=== PATIENT | female | born 1955 | race American Indian/Alaskan Native ===

== ENCOUNTER 2024-09-15 16:07 | Inpatient (IN) | payer OTHER ==
[~2024-09-15] VITALS: Ht 162.6 cm; Wt 72.9 kg
[2024-09-15 16:40] VITALS: PULSE 76; RESP 16; O2SAT 98
--- NOTE | 2024-09-15 16:48 | DVH ---
CHEST RADIOGRAPH Indication: syncope, head injury, possible stroke Technique: Single frontal view of the chest was obtained COMPARISON: None FINDINGS: Lines and Tubes: None Lungs: Clear Pleura: No effusion. No pneumothorax. Cardiomediastinal contours: Unremarkable Bones: Unremarkable IMPRESSION: 1. No acute disease.
--- NOTE | 2024-09-15 16:51 | DVH ---
EXAM: CT STROKE CTH INDICATION: syncope, head injury, possible stroke TECHNIQUE: CT of the head without intravenous contrast. Radiation Dose Information: CT Dose: CTDI volume is 51.46 mGy. Dose-length product is 911.39 mGy*cm The dose indicators for CT are the volume Computed Tomography (CT) Dose Index (CTDIvol) and the Dose Length Product (DLP), and are measured in units of mGy and mGy-cm, respectively. These indicators are not patient dose, but values generated from the CT scanner acquisition factors. The report includes radiation exposure data for exposures received during this examination. COMPARISON: None FINDINGS: There is no evidence of acute intracranial hemorrhage, extra-axial collection, mass effect, midline s hift, herniation or hydrocephalus. The ventricles, sulci and cisterns are age appropriate. The adams-white differentiation is intact. Patchy periventricular and subcortical white matter hypoattenuation is nonspecific but may be related to small vessel ischemic disease. The visualized paranasal sinuses and mastoid air cells are clear. The surrounding soft tissues and osseous structures are unremarkable. IMPRESSION: 1. No acute intracranial hemorrhage 2. No CT findings of territorial ischemia. CRITICAL FINDINGS Critical Result: Stroke Alert NEGATIVE Findings discussed with Dr Rosa , at 09/15/2024 04:44 PM, and acknowledged receipt and understanding of the findings. ..
--- NOTE | 2024-09-15 16:54 | ED.PDOC ---
HPI (NEURO) HPI Comments 69y F who presents to the ED for chief complaint of confusion. Pt had the following ED course. - pt states she had slip and fall in bedroom Thursday at 0200 after getting up to use restroom. Pt states gracie heard a thud and states gracie went to check on her and states all she remembers is she got up and told grandson she was okay and went to bed - pt states the following morning, she remembers waking to blood on the floor and states she saw remember seeing blood on the floor where she fell - pt states since fall she has been having L shoulder and L sided chest pain with associated dizziness and difficulty with gait and while ambulating - pt states she was at dermatology appt earlier this afternoon and states leathersmith noticed pt had gait instability, dizziness and slowed speech and referred pt to the ED for further evaluation - pt in the ED, is alert and oriented but is slow to answering questions and states she is having pain to the L side of her chest and neck area and states she feels unsteady on her feet - pt otherwise in the ED, denies any other symptoms at this time. PMH: asthma PSH: denies Allergies: cough medication Social history: denies tobacco use, endorses ETOH use, denies drug use HPI: Poor Historian. REVIEW OF SYSTEMS: CONSTITUTIONAL: Denies acute: fever, diaphoresis, chills, HEAD: Denies acute: headache, photophobia Eyes: Denies acute: Double vision, vision loss, eye pain, eye discharge. EARS: Denies acute: tinnitus, hearing loss, ear discharge, ear pain, THROAT: Denies acute: sore throat, swelling, difficulty swallowing , pain with swallowing, change in voice. NECK: Denies acute: neck pain, neck swelling, stiff neck. HEART: Denies acute : chest pain, palpitations, LUNGS: Denies acute: SOB, wheezing, cough, hemoptysis ABDOMEN: Denies acute: abdominal pain, Nausea, Vomiting, diarrhea, melena , hematemesis, hematochezia SKIN: Denies acute: rash, redness, lesions, itchiness. EXTREMITIES: Denies acute: calf pain, numbness, tingling, weakness, denies pain in extremity. Denies acute: Low back pain. Neuro: Denies acute: focal neurological deficit, motor or sensory focal neurological deficit, tremors, seizure like activity, confusion, change in mental status, loss of bowel or bladder function, cauda equina like symptoms. : Denies acute: dysuria, hematuria, flank pain, increase in urinary frequency. PSYCH: Denies acute: hallucination, suicidal ideation, homicidal ideation. FEMALE: Denies acute: abnormal vaginal bleeding, foul odor, unusual discharge. PHYSICAL EXAM: General: Mild acute distress, awake and alert. Head: normocephalic, atraumatic. Noted left forehead 1.5 cm laceration. No active bleeding, no swelling, this occurred at least three days ago. Neck: supple, trachea is midline, no swelling. Cervical spine: Palpation of the posterior midline of the cervical spine reveals no focal swelling, erythema, focal tenderness to palpation. Patient has normal range of motion. Throat: Normal phonation. Eyes:, no erythema, no purulent discharge, no proptosis, no icterus. Heart: regular rate, regular rhythm, no significant murmur appreciated. Lungs: no apparent respiratory distress, Able to speak in full sentences. No wheezing, no rhonchi, no crackles. No stridors Clear to auscultation bilaterally. Abdomen: non tender to palpation, non distended, soft, no guarding, no rebound, + bowel sounds. Palpation of the left chest wall has mild tenderness to palpation. Neuro: Awake, Alert, oriented to name, self, situation, follows commands GCS=15. Speech is normal. Skin: no petechia, no purpura, no cyanosis, non-pale, not jaundice. Lower extremities: --trace bilateral - Pitting edema no deformity, no focal swelling, no calf TTP. Makes eye contact. moves all four extremities. Face: no apparent facial droop. Ambulating in the ED independently. PERRLA, EOM-I CN 2-12 are grossly intact, No nystagmus. No nuchal rigidity, Kernig's sign, Brudzinski's sign, no meningeal signs. ED COURSE: Chief Complaint: Confusion Time Seen by MD: 17:00 Reviewed Notes: Nurses Notes, Medications, Allergies Information Source: Patient, Relative Mode of Arrival: Ambulatory Brought in by: grandson Was a procedure done? Was a procedure done?: No X-Ray, Labs, Meds, VS Vital Signs Date Time Temp Pulse Resp B/P (MAP) Pulse Ox O2 Delivery O2 Flow Rate FiO2 09/15/24 18:38 66 09/15/24 18:00 62 16 123/60 (81) 97 09/15/24 16:40 76 16 98 Room Air* 0 21 09/15/24 16:40 97.4 136 14 116/69 (85) 97 97.4 09/15/24 16:21 66 09/15/24 16:07 98.8 84 18 145/73 (97) 98 98.8 Lab Test 09/15/24 18:35 09/15/24 17:15 09/15/24 16:55 09/15/24 16:26 Range/Units Troponin I High Sensitivity 3 L < 3 L </=34 ng/L Urine Color Light-yellow Yellow Urine Clarity Clear Clear Urine pH 6.0 5.0-9.0 Urine Specific Jerome 1.008 1.001-1.035 Urine Protein Negative Negative Urine Ketones Negative Negative Urine Blood Negative Negative /uL Urine Nitrite 2+ H Negative Urine Bilirubin Negative Negative Urine Urobilinogen Normal Negative mg/dL Urine Leukocyte Esterase 2+ Negative /uL Urine RBC 1 0 - 4 /hpf Urine Microscopic WBC 5 0-5 /HPF Urine Squamous Epithelial Cells Few <5 /hpf Urine Bacteria Few H None Seen /hpf Urine Mucus Few None Seen Urine Glucose Normal Normal mg/dL White Blood Count 7.3 4.4-10.8 10^3/uL Red Blood Count 4.82 4.0-5.20 10^6/uL Hemoglobin 15.1 12.2-16.2 g/dL Hematocrit 44.6 36.0-46.0 % Mean Corpuscular Volume 92.5 80.0-100.0 fL Mean Corpuscular Hemoglobin 31.4 28.0-32.0 pg Mean Corpuscular Hemoglobin Concent 33.9 32.0-36.0 g/dL Red Cell Distribution Width 13.4 11.8-14.3 % Platelet Count 263 140-450 10^3/uL Mean Platelet Volume 7.6 6.9-10.8 fL Neutrophils (%) (Auto) 60.1 37.0-80.0 % Lymphocytes (%) (Auto) 29.3 10.0-50.0 % Monocytes (%) (Auto) 8.8 0.0-12.0 % Eosinophils (%) (Auto) 1.1 0.0-7.0 % Basophils (%) (Auto) 0.7 0.0-2.0 % Neutrophils # (Auto) 4.4 1.6-8.6 10 ^3/uL Lymphocytes # (Auto) 2.1 0.4-5.4 10 ^3/uL Monocytes # (Auto) 0.6 0-1.3 10 ^3/uL Eosinophils # (Auto) 0.1 0-0.8 10 ^3/uL Basophils # (Auto) 0.1 0-0.2 10 ^3/uL Nucleated Red Blood Cells 0.1 % Prothrombin Time 10.5 9.3-11.8 sec Prothrombin Time INR 0.99 0.9-1.15 Activated Partial Thromboplast Time 25.4 24.5-34.5 SEC Sodium Level 141 136-145 mmol/L Potassium Level 4.2 3.5-5.1 mmol/L Chloride Level 106 98-107 mmol/L Carbon Dioxide Level 26 20-31 mmol/L Anion Gap 9 5-15 Blood Urea Nitrogen 15 9-23 mg/dL Creatinine 0.81 0.550-1.02 mg/dL Glomerular Filtration Rate Calc 79 >90 mL/min BUN/Creatinine Ratio 18.5 10.0-20.0 Serum Glucose 93 74-106 mg/dL Calcium Level 10.1 8.7-10.4 mg/dL Magnesium Level 2.1 1.6-2.6 mg/dL Total Bilirubin 1.4 H 0.2-1.0 mg/dL Aspartate Amino Transferase (AST) 25 13-40 U/L Alanine Aminotransferase (ALT) 22 7-40 U/L Alkaline Phosphatase 81 46-116 U/L B-Type Natriuretic Peptide 27.05 0-100 pg/mL Total Protein 6.9 5.7-8.2 g/dL Albumin 4.7 3.2-4.8 g/dL POC Glucose 91 70-106 mg/dl [facility] [id number] [place] [id number] Ph: [phone] DIAGNOSTIC IMAGING Diagnostic Imaging Report : [id number] Signed PATIENT: COTY JASSO ACCT: [id number] UNIT: [id number] : 1955 LOC: ER ROOM / BED: / AGE / SEX: 69 / F ADM STATUS: REG ER SERVICE 24 ORDERING PHYSICIAN: KELSY READ DO PROCEDURE(s): CXR1 - CHEST XRAY 1 VIEW REASON: syncope, head injury, possible stroke ORDER NUMBER(s): [id number], ACCESSION NUMBER(s): [id number] CHEST RADIOGRAPH Indication: syncope, head injury, possible stroke Technique: Single frontal view of the chest was obtained COMPARISON: None FINDINGS: Lines and Tubes: None Lungs: Clear Pleura: No effusion. No pneumothorax. Cardiomediastinal contours: Unremarkable Bones: Unremarkable IMPRESSION: 1. No acute disease. ATED BY: CHARLOTTE LI MD DICTATED DATE/TIME: 09/15/241645 SIGNED BY: CHARLOTTE LI MD SIGNED DATE/TIME: 09/15/241645 CC: [place] [id number] Ph: [phone] DIAGNOSTIC IMAGING Diagnostic Imaging Report : [id number] Signed PATIENT: COTY JASSO ACCT: [id number] UNIT: [id number] : 1955 LOC: ER ROOM / BED: / AGE / SEX: 69 / F ADM STATUS: REG ER SERVICE 24 ORDERING PHYSICIAN: KELSY READ DO PROCEDURE(s): CTH - STROKE CTH REASON: syncope, head injury, possible stroke ORDER NUMBER(s): [id number], ACCESSION NUMBER(s): [id number] EXAM: CT STROKE CTH INDICATION: syncope, head injury, possible stroke TECHNIQUE: CT of the head without intravenous contrast. Radiation Dose Information: CT Dose: CTDI volume is 51.46 mGy. Dose-length product is 911.39 mGy*cm The dose indicators for CT are the volume Computed Tomography (CT) Dose Index (CTDIvol) and the Dose Length Product (DLP), and are measured in units of mGy and mGy-cm, respectively. These indicators are not patient dose, but values generated from the CT scanner acquisition factors. The report includes radiation exposure data for exposures received during this examination. COMPARISON: None FINDINGS: There is no evidence of acute intracranial hemorrhage, extra-axial collection, mass effect, midline shift, herniation or hydrocephalus. The ventricles, sulci and cisterns are age appropriate. The adams-white differentiation is intact. Patchy periventricular and subcortical white matter hypoattenuation is nonspecific but may be related to small vessel ischemic disease. The visualized paranasal sinuses and mastoid air cells are clear. The surrounding soft tissues and osseous structures are unremarkable. IMPRESSION: 1. No acute intracranial hemorrhage 2. No CT findings of territorial ischemia. CRITICAL FINDINGS Critical Result: Stroke Alert NEGATIVE Findings discussed with Dr Read , at 09/15/2024 04:44 PM, and acknowledged receipt and understanding of the findings. .. ATED BY: CHARLOTTE DURAN Jr., DO DICTATED DATE/TIME: 09/15/24 1649 SIGNED BY: CHARLOTTE DURAN Jr., SIGNED DATE/TIME: 09/15/24 1649 CC: Time of 1ST Reevaluation: 19:48 Reevaluation 1ST: Improved Patient Education/Counseling: Diagnosis, Treatment Family Education/Counseling: No Family Present Comments Patient presented with the above HPI.---syncope and collapse---workup was initiated. patient was found with the above mentioned diagnosis. the following medications were ordered: please refer to order lists of meds and tests obtained by myself Dr. Read. Patient ED course and VS have been stabilized. Patient has been reassessed in the ED and remained in a stable condition. Pertinent incidental findings were discussed with the patient and/or family. Patient/family voices understanding and is agreeable with plan. Patient has been observed in the ED adequate length of time to insure improvement/stability. Escalation of care considered: Consideration of escalation to observation or admission Stroke call was activated initially. Tele neuro evaluated the patient. Patient also complained of chest pain as well and possible syncope and collapse. Patient was ADMITTED to the medicine team for further evaluation and treatment of their presentation. All the reports of any imaging studies that were ordered by myself were reviewed by myself. Departure 1 Departure Time of Disposition: 19:05 Impression: Primary Impression: Dizziness Additional Impressions: Chest pain Syncope and collapse UTI (urinary tract infection) Closed head injury Disposition: ADMITTED INPATIENT Admit to: Tele Condition: Guarded Discharged With: Self Critical Care Note Critical Care Time?: Yes (45 min-critical care time only) I personally scribed for KELSY READ DO ([email or web address]) on 09/15/24 at 16:54. Electronically submitted by Cristiano Glynn ([email or web address]). I personally scribed for KELSY READ DO ([email or web address]) on 09/15/24 at 17:44. Electronically submitted by Cristiano Glynn ([email or web address]). KELSY READ DO Sep 15, 2024 16:54
--- NOTE | 2024-09-15 16:55 | BSKYNEURO ---
[facility] Note # Demographics Consult Type: Acute Stroke Level 2 (4.5-24 hrs) Patient Location: Emergency Room First Name: COTY Last Name: LOUISA Date of : 1955 Age: 69 Gender: Female Facility: [facility] Time of Initial Page (): 09/15/2024 16:31 Time of Return Call (): 09/15/2024 16:32 # HPI Chief Complaint: Falls History: 69 yo F had a fall on Thu. She slipped on the carpet and hit her head on. She lost her consciousness briefly. She has been doing well until today that she started having dizziness, lightheadedness and chest pain. Last Known Normal: - I have collected independent history specific to time last normal or last known well. We have collaborated with the provider and at this time, we have the most current timeline with the information that is available. Thu # Scores Time of exam and NIHSS (): 09/15/2024 16:36 Level of Consciousness 1a: [0] = Alert; keenly responsive LOC Questions 1b: [0] = Answers both questions correctly LOC Commands 1c: [0] = Performs both tasks correctly Best Gaze 2: [0] = Normal Visual 3: [0] = No visual loss Facial Palsy 4: [0] = Normal symmetrical movements Motor Arm Left 5a: [0] = No drift Motor Arm Right 5b: [0] = No drift Motor Leg Left 6a: [0] = No drift Motor Leg Right 6b: [0] = No drift Limb Ataxia 7: [0] = Absent Sensory 8: [0] = Normal Best Language 9: [0] = No aphasia Dysarthria 10: [0] = Normal Extinction and Inattention 11: [0] = No abnormality NIHSS Total: 0 # ROS Additional: - complete review of systems otherwise negative # Data Head CT: - no bleed - preliminarily reviewed by me, please refer to radiology read for official reading # Assessment Impression: Lightheadedness and dizziness, likely post-concussion syndrome # Plan Thrombolytic/Intervention: NOT IV Thrombolysis or IA Intervention candidate Thrombolytic Exclusion: > 4.5 hours Intraarterial Exclusion: - clinical exam not consistent with presence of large vessel occlusion (LVO), c an reconsider if LVO found on vascular imaging Blood Pressure Management: - IV fluid bolus Imaging: (urgency: routine): If symptoms persist, obtain MRI brain w/o Therapy/Evaluation: - PT/OT evaluation - Check orthostatic VS Other: - If patient has any neurological deterioration please call me back immediately - telemetry monitoring # Logistics Attestation of consult completion: The patient is located at: [facility]. Facility staff participated in the visit. I performed this telemedicine visit from my offsite office utilizing interactive 2 way audio and visual telecommunication technology. Total time spent in telemedicine encounter: I spent 21 minutes reviewing clinical data and/or imaging, obtaining history, examining the patient, communicating with the onsite care team, and in preparation of this report. # Demographics First Name: COTY Last Name: LOUISA Facility: [facility] Electronically signed at 09/15/2024 16:54 ([place] Time) by Jose Hurley MD Yes JOSE HURLEY MD Sep 15, 2024 16:55
[2024-09-15 17:14] LABS: Basophils # (auto) 0.1 10 ^3/uL (0-0.2); Basophils % (auto) 0.7 % (0.0-2.0); Eosinophils # (auto) 0.1 10 ^3/uL (0-0.8); Eosinophils % (auto) 1.1 % (0.0-7.0); Hematocrit 44.6 % (36.0-46.0); Hemoglobin 15.1 g/dL (12.2-16.2); Lymphocytes # (auto) 2.1 10 ^3/uL (0.4-5.4); Lymphocytes % (auto) 29.3 % (10.0-50.0); Mean Corpuscular Hemoglobin 31.4 pg (28.0-32.0); Mean Corpuscular Hgb Conc. 33.9 g/dL (32.0-36.0); Mean Corpuscular Volume 92.5 fL (80.0-100.0); Monocytes # (auto) 0.6 10 ^3/uL (0-1.3); Monocytes % (auto) 8.8 % (0.0-12.0); Neutrophils # (auto) 4.4 10 ^3/uL (1.6-8.6); Neutrophils % (auto) 60.1 % (37.0-80.0); Nucleated Red Blood Cells % 0.1 %; Platelet Count (auto) 263 10^3/uL (140-450); Red Blood Cells 4.82 10^6/uL (4.0-5.20); Red Cell Distribution Width 13.4 % (11.8-14.3); White Blood Cell 7.3 10^3/uL (4.4-10.8)
[2024-09-15 17:21] LABS: Alanine Aminotransferase 22 U/L (7-40); Albumin 4.7 g/dL (3.2-4.8); Alkaline Phosphatase 81 U/L (46-116); Anion Gap 9 (5-15); Aspartate Aminotransferase 25 U/L (13-40); BUN/Creatinine Ratio 18.5 (10.0-20.0); Blood Urea Nitrogen 15 mg/dL (9-23); Calcium 10.1 mg/dL (8.7-10.4); Carbon Dioxide 26 mmol/L (20-31); Chloride 106 mmol/L (98-107); Glucose 93 mg/dL (74-106); Magnesium 2.1 mg/dL (1.6-2.6); Potassium 4.2 mmol/L (3.5-5.1); Sodium 141 mmol/L (136-145); Total Protein 6.9 g/dL (5.7-8.2)
[2024-09-15 17:22] LABS: INR 0.99 (0.9-1.15); Partial Thromboplastin Time 25.4 SEC (24.5-34.5); Prothrombin Time 10.5 sec (9.3-11.8)
[2024-09-15 17:24] LABS: Bilirubin, Total 1.4 mg/dL (0.2-1.0)
[2024-09-15 17:57] LABS: Urine Bacteria FEW /hpf (None Seen); Urine Blood Negative /uL (Negative); Urine Clarity Clear (Clear); Urine Color Light-Yellow (Yellow); Urine Mucus FEW (None Seen); Urine Protein, UAD Negative (Negative); Urine Specific Gravity 1.008 (1.001-1.035); Urine Squamous Epithelial Cell FEW /hpf (<5); Urine Urobilinogen Normal (Negative); Urine WBC 5 /HPF (0-5)
[2024-09-15 20:00] VITALS: PULSE 60; RESP 14; O2SAT 99
[2024-09-15] MEDS: ASPirin-EC 325mg tab PO ONE (20:39)
[2024-09-15] MEDS: cefTRIAXone 1GM/50ML D5W 50 ML IV ONE ×2 (20:40→23:58)
[2024-09-15] MEDS ORDERED: MORPHINE SULFATE INJ 2 MG/ml SYRG IV PRN (23:30)
--- NOTE | 2024-09-15 23:33 | DVHHPRES ---
History of Present Illness Resident Creating Document: SABI CHEN RESDIENT History of Present Illness This is a 69-year-old female with past medical history asthma brought to the hospital due to confusion status post mechanical fall. Per patient and patient's son, she had a mechanical fall 3 days back (the patient does not remember complete today event) but did not loss consciousness with no post fall nausea and vomiting, on morning the patient noticed bleeding on the floor and a scratch on forehead. Patient gradually developed dizziness, imbalance and got confused which prompted this visit. She Also reports dysuria, frequency and urgency. Patient denies fever, nausea, vomiting, chest pain, shortness of breath, or any bowel and bladder habit changes. PMHx: Asthma PSHx: Not significant Family history: Not contributory Social history: Lives with the family at home, drinks socially, denies any other drug use Home medication: Fluticasone, zolpidem, and albuterol Allergic history: Dextromethorphan and guaifenesin Review of Systems Review of Systems General: patient denies fever, fatigue, weaknes, sweating, any recent changes in appetite and weight HEENT: No headaches, visiual changes, hearing loss, tinnitus, nasal congestion and discharge, and sore throat. Cardiovascular: Denies chest pain, palpitations, dyspnea on exertion, orthopnea, or claudication. Respiratory: No cough, and wheezing. Gastrointestinal: Denies nausea, vomiting, dysphagia, odynophagia, heartburn, abdominal pain, flatulence, bloating, diarrhea, constipation, change in stool, or blood in stool. Genitourinary: Reports dysuria, urgency and frequency Endocrine: No heat or cold intolerance, polydipsia, polyuria, and polyphagia. Neurological: No dizziness, extremity weakness and numbness, tremors, gait disturbance, seizures, and memory impairment. Psychiatric: Denies depression, anxiety,or insomnia. Musculoskeletal: Denies neck pain, stiffness and swelling, back pain, muscle weakness, joint pain, stiffness, swelling, or limited range of motion. Skin: No rashes, itching, skin lesion, changes in hair, nail, skin texture and breast. Hematologic/Lymphatic: Denies easy bruising, bleeding tendencies, or lymph node enlargement. Allergies: Coded Allergies: Dextromethorphan (Verified Allergy, Unknown, 09/15/24) Guaifenesin (Verified Allergy, Unknown, 09/15/24) Exam Vital Signs Vital Signs Date Time Temp Pulse Resp B/P (MAP) Pulse Ox O2 Delivery O2 Flow Rate FiO2 09/15/24 21:00 68 14 117/70 (86) 97 09/15/24 20:00 97.9 97.9 09/15/24 20:00 Room Air* 0 21 Exam General Appearance: Alert, Oriented X3, Cooperative, No acute distress HEENT: Atraumatic, PERRLA, EOMI, Mucous membrane moist/pink Respiratory: Clear to auscultation, Normal air movement Cardiovascular: Regular rate, Normal S1, Normal S2, No murmurs, no chest wall tenderness Abdominal: Mild suprapubic tenderness Extremities: No clubbing, No cyanosis, No edema, Normal pulses, No tenderness/swelling Skin: No rashes, No breakdown, No significant lesion Neuro: Normal gait, Normal speech, Strength at 5/5 X4 ext, Normal tone, Sensation intact, Cranial nerves 3-12 NL, Reflexes 2+ Psych/Mental Status: Mental status NL, Mood NL Labs/Xrays Labs Test 09/15/24 20:39 09/15/24 20:32 09/15/24 17:15 09/15/24 16:55 Range/Units POC Glucose 86 70-106 mg/dl Troponin I High Sensitivity 3 L </=34 ng/L Urine Color Light-yellow Yellow Urine Clarity Clear Clear Urine pH 6.0 5.0-9.0 Urine Specific [place] 1.008 1.001-1.035 Urine Protein Negative Negative Urine Ketones Negative Negative Urine Blood Negative Negative /uL Urine Nitrite 2+ H Negative Urine Bilirubin Negative Negative Urine Urobilinogen Normal Negative mg/dL Urine Leukocyte Esterase 2+ Negative /uL Urine RBC 1 0 - 4 /hpf Urine Microscopic WBC 5 0-5 /HPF Urine Squamous Epithelial Cells Few <5 /hpf Urine Bacteria Few H None Seen /hpf Urine Mucus Few None Seen Urine Glucose Normal Normal mg/dL White Blood Count 7.3 4.4-10.8 10^3/uL Red Blood Count 4.82 4.0-5.20 10^6/uL Hemoglobin 15.1 12.2-16.2 g/dL Hematocrit 44.6 36.0-46.0 % Mean Corpuscular Volume 92.5 80.0-100.0 fL Mean Corpuscular Hemoglobin 31.4 28.0-32.0 pg Mean Corpuscular Hemoglobin Concent 33.9 32.0-36.0 g/dL Red Cell Distribution Width 13.4 11.8-14.3 % Platelet Count 263 140-450 10^3/uL Mean Platelet Volume 7.6 6.9-10.8 fL Neutrophils (%) (Auto) 60.1 37.0-80.0 % Lymphocytes (%) (Auto) 29.3 10.0-50.0 % Monocytes (%) (Auto) 8.8 0.0-12.0 % Eosinophils (%) (Auto) 1.1 0.0-7.0 % Basophils (%) (Auto) 0.7 0.0-2.0 % Neutrophils # (Auto) 4.4 1.6-8.6 10 ^3/uL Lymphocytes # (Auto) 2.1 0.4-5.4 10 ^3/uL Monocytes # (Auto) 0.6 0-1.3 10 ^3/uL Eosinophils # (Auto) 0.1 0-0.8 10 ^3/uL Basophils # (Auto) 0.1 0-0.2 10 ^3/uL Nucleated Red Blood Cells 0.1 % Prothrombin Time 10.5 9.3-11.8 sec Prothrombin Time INR 0.99 0.9-1.15 Activated Partial Thromboplast Time 25.4 24.5-34.5 SEC Sodium Level 141 136-145 mmol/L Potassium Level 4.2 3.5-5.1 mmol/L Chloride Level 106 98-107 mmol/L Carbon Dioxide Level 26 20-31 mmol/L Anion Gap 9 5-15 Blood Urea Nitrogen 15 9-23 mg/dL Creatinine 0.81 0.550-1.02 mg/dL Glomerular Filtration Rate Calc 79 >90 mL/min BUN/Creatinine Ratio 18.5 10.0-20.0 Serum Glucose 93 74-106 mg/dL Calcium Level 10.1 8.7-10.4 mg/dL Magnesium Level 2.1 1.6-2.6 mg/dL Total Bilirubin 1.4 H 0.2-1.0 mg/dL Aspartate Amino Transferase (AST) 25 13-40 U/L Alanine Aminotransferase (ALT) 22 7-40 U/L Alkaline Phosphatase 81 46-116 U/L B-Type Natriuretic Peptide 27.05 0-100 pg/mL Total Protein 6.9 5.7-8.2 g/dL Albumin 4.7 3.2-4.8 g/dL Assessment/Plan Assessment/Plan Possible syncope/mechanical fall Complicated UTI Head CT scan shows no acute intracranial abnormalities UA shows UTI picture Urine culture IV fluid Empiric antibiotic, ceftriaxone Asthma Breathing treatment hyperbilirubinemia DIET: Regular diet DVT PROPHYLAXIS: Lovenox GI PROPHYLAXIS:: Protonix CODE STATUS: Goal of care discussed for more than 18 minutes, full code DISPOSITION: Med surge Patient's status and plan discussed with the patient and the patient's son at the bedside. Case discussed with Dr. Pimentel Plan discussed with: Patient, Other (RN) My Orders Orders - SABI CHEN Procedure Category Date Status Time Admit ADMIT 09/15/24 Transmitted 23:26 Code Status CODE 09/15/24 Transmitted 23:26 Review Orders With [facility] 09/15/24 Transmitted Adm. 23:26 Notify Md Of Changes [facility] 09/15/24 Transmitted From Base 23:26 Advance Directive [facility] 09/15/24 Transmitted 23:26 Patient Condition ORDERS 09/15/24 Transmitted 23:26 Allergies [facility] 09/15/24 Transmitted 23:26 Stat Ekg For Chest [facility] 09/15/24 Transmitted Pain 23:26 Notify Md Of Changes [facility] 09/15/24 Transmitted From Base 23:26 Infection Control Manager For [facility] 09/15/24 Transmitted 24 Hours 23:26 Emergency Dysrhythmia [facility] 09/15/24 Transmitted Protocol 23:26 Rhythm Strips Once [facility] 09/15/24 Transmitted Every Shift 23:26 Comprehensive LAB 09/16/24 Verified Metabolic Panel 04:00 PTPTT LAB 09/16/24 Verified 04:00 Complete Blood Count LAB 09/16/24 Verified 04:00 Urine Bacterial [place] 09/15/24 Transmitted Culture 23:26 Hemoglobin A1c LAB 09/15/24 Transmitted 23:26 Drug Screen LAB 09/15/24 Transmitted 23:26 Lipid Panel LAB 09/15/24 Transmitted 23:26 Blood Alcohol LAB 09/15/24 Transmitted 23:26 Ceftriaxone Ivpb PHA 09/16/24 Transmitted Rocephin 09:00 Ceftriaxone Ivpb PHA 09/15/24 Transmitted Rocephin 23:30 NS PHA 09/15/24 Transmitted 23:30 NS PHA 09/15/24 Transmitted 23:30 Morphine Sulfate PHA 09/15/24 Transmitted Injection 23:30 Hydrocodone-Acet PHA 09/15/24 Verified 5/325mg Tab ([place] 23:30 Enoxaparin Sodium PHA 09/15/24 Verified (Lovenox) 23:30 Enoxaparin Sodium PHA 09/16/24 Verified (Lovenox) 10:00 Pantoprazole PHA 09/15/24 Verified (Protonix) 23:30 Pantoprazole PHA 09/16/24 Verified (Protonix) 10:00 Melatonin (Melatonin) PHA 09/16/24 Verified 22:00 Melatonin (Melatonin) PHA 09/16/24 Verified 22:00 Ipratropium Medneb PHA 09/16/24 Verified (Atrovent Medneb) 06:00 Levalbuterol Hcl PHA 09/16/24 Verified (Xopenex Medneb) 00:00 Date of Service: Sep 15, 2024 Billing Provider: ADI PIMENTEL MD Common Visit Codes: 63204-[id number] INP/OBS CARE (HIGH) Secondary Visit Codes: 08499-[id number] CARE PLAN 30 MINUTES SABI CHEN RESDIENT Sep 15, 2024 23:33 ADI PIMENTEL MD Sep 16, 2024 12:52
[2024-09-15] MEDS: ENOXAPARIN SOD 40 MG/0.4 ML SYRINGE SC ONE (23:58)
[2024-09-16] VITALS (14 sets, daily range): BP systolic 101–124; BP diastolic 62–87; PULSE 56–88; RESP 11–18; TEMP 97.4–98.3; O2SAT 95–100
[2024-09-16] MEDS: LEVALBUTEROL HCL 1.25 MG/3 ML NEB NEB SCH
[2024-09-16] MEDS: SODIUM CHLORIDE 0.9% 500 ML IV ONE (00:05)
[2024-09-16] MEDS: SODIUM CHLORIDE 0.9% 1,000 ML IV SCH (00:05)
[2024-09-16] MEDS: PANTOPRAZOLE 40 MG/10 ML VIAL INJ IV ONE (00:05)
[2024-09-16] MEDS: MELATONIN 5 MG TAB PO ONE (00:05)
[2024-09-16 00:15] LABS: Triglycerides 43 mg/dL (< 150)
[2024-09-16 00:16] LABS: LDL Cholesterol 89 mg/dL (< 100)
[2024-09-16 00:17] LABS: Cholesterol 182 mg/dL (< 200)
[2024-09-16 00:18] LABS: Blood Alcohol < 3.0 mg/dL (<10); HDL Cholesterol 82 mg/dL (40-59)
[2024-09-16 00:19] LABS: Amphetamine Screen, Urine Neg (NEGATIVE); Barbiturate Scree,Urine Neg (NEGATIVE); Benzodiazephine Screen, Urine Neg (NEGATIVE); Cannabinoid Screen, Urine Neg (NEGATIVE); Cocaine Screen, Urine Neg (NEGATIVE); Opiate Scree,Urine Neg (NEGATIVE); Phencyclidine Screen, Urine Neg (NEGATIVE)
[2024-09-16] MEDS: IPRATROPIUM BROM 0.5 MG/2.5ML INH SOL NEB SCH (06:36)
[2024-09-16 07:01] LABS: Basophils # (auto) 0.1 10 ^3/uL (0-0.2); Basophils % (auto) 0.9 % (0.0-2.0); Eosinophils # (auto) 0.1 10 ^3/uL (0-0.8); Eosinophils % (auto) 2.4 % (0.0-7.0); Hematocrit 41.8 % (36.0-46.0); Hemoglobin 14.3 g/dL (12.2-16.2); Lymphocytes # (auto) 2.4 10 ^3/uL (0.4-5.4); Lymphocytes % (auto) 40.8 % (10.0-50.0); Mean Corpuscular Hemoglobin 31.9 pg (28.0-32.0); Mean Corpuscular Hgb Conc. 34.3 g/dL (32.0-36.0); Mean Corpuscular Volume 93.1 fL (80.0-100.0); Monocytes # (auto) 0.7 10 ^3/uL (0-1.3); Neutrophils # (auto) 2.7 10 ^3/uL (1.6-8.6); Neutrophils % (auto) 44.9 % (37.0-80.0); Nucleated Red Blood Cells % 0.1 %; Platelet Count (auto) 246 10^3/uL (140-450); Red Blood Cells 4.49 10^6/uL (4.0-5.20); Red Cell Distribution Width 13.1 % (11.8-14.3); White Blood Cell 5.9 10^3/uL (4.4-10.8)
[2024-09-16 07:12] LABS: INR 1.03 (0.9-1.15); Partial Thromboplastin Time 25.2 SEC (24.5-34.5); Prothrombin Time 10.9 sec (9.3-11.8)
[2024-09-16 07:14] LABS: Alanine Aminotransferase 21 U/L (7-40); Alkaline Phosphatase 74 U/L (46-116); Anion Gap 9 (5-15); BUN/Creatinine Ratio 10.3 (10.0-20.0); Calcium 10.1 mg/dL (8.7-10.4); Carbon Dioxide 25 mmol/L (20-31); Glucose 101 mg/dL (74-106); Potassium 4.2 mmol/L (3.5-5.1); Sodium 143 mmol/L (136-145); Total Protein 6.8 g/dL (5.7-8.2)
[2024-09-16 07:15] LABS: Albumin 4.5 g/dL (3.2-4.8); Aspartate Aminotransferase 27 U/L (13-40); Chloride 109 mmol/L (98-107)
[2024-09-16 07:16] LABS: Bilirubin, Total 1.6 mg/dL (0.2-1.0); Blood Urea Nitrogen 8 mg/dL (9-23)
[2024-09-16] MEDS: PANTOPRAZOLE 40 MG/10 ML VIAL INJ IV SCH (09:50)
[2024-09-16] MEDS ORDERED: POM (10:01)
[2024-09-16] MEDS ORDERED: ZOLP5TAB5 PO (10:01)
--- NOTE | 2024-09-16 12:21 | ECG ---
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
--- NOTE | 2024-09-16 13:14 | DVHPN2 ---
Progress Note - Dictate Date Seen: Sep 16, 2024 Medical Necessity Reason Pt with a Central, PICC or Fol: No Subjective Her dizziness has resolved. She was ambulating. Feels better. vital signs Vital Sign Date Time Temp Pulse Resp B/P (MAP) Pulse Ox O2 Delivery O2 Flow Rate FiO2 09/16/24 09:00 98.1 64 18 101/63 (76) 100 98.1 09/16/24 08:00 Room Air* 0 21 Total Intake and Output 09/15/24 09/15/24 09/16/24 15:00 23:00 07:00 Intake Total 50 ml 760 ml Balance 50 ml 760 ml medications Current Medications Medications Dose Ordered Sig/Vladimir Route Start Time Stop Time Status Last Admin Dose Admin Ceftriaxone Sodium 50 ml @ 100 mls/hr Q24H IV 09/16/24 21:00 Sodium Chloride 1,000 ml @ 60 mls/hr [id number] IV 09/15/24 23:30 09/16/24 00:05 60 MLS/HR Morphine Sulfate 1 mg Q4HP PRN IV 09/15/24 23:30 Acetaminophen/ Hydrocodone Bitart 1 tab Q6HPRN PRN PO 09/15/24 23:30 Enoxaparin Sodium 40 mg Q24H SC 09/16/24 21:00 Melatonin 5 mg HS PO 09/16/24 22:00 Ipratropium [place] 0.5 mg Q6HWA NEB 09/16/24 06:00 09/16/24 06:36 0.5 MG Levalbuterol HCl 0.625 mg Q6HR NEB 09/16/24 00:00 09/16/24 06:36 0.625 MG objective Alert awake oriented x3. Having lunch. HEENT neck supple no JVD. Pupils equal round react to light. No nystagmus. Heart regular rate and rhythm S1 plus S2. Lungs fair air movement without rales wheezes. Abdomen obese soft nontender positive bowel sounds. Extremities no edema positive pulses. Neurologically no focal deficits laboratory and microbiology Laboratory Tests 09/16/24 06:03 Test 09/16/24 06:03 Range/Units Serum Glucose 101 74-106 mg/dL Assessment/Plan We will check orthostatic blood pressure today. 2D echocardiogram today. MRI of the brain. Otherwise continue current supportive care and treatment. If her workup is normal then she can be discharged home. Discussed with the patient and family member at bedside regarding care plan. Problems(with codes): (1) Dizziness (2) Closed head injury (3) UTI (urinary tract infection) Plan discussed with: Patient HIGINIO OVERTON MD Sep 16, 2024 13:14
--- NOTE | 2024-09-16 16:04 | DVH ---
EXAM: MRI BRAIN HEAD WO CONTRAST HISTORY: aloc COMPARISON: CT scan dated 09/15/2024 TECHNIQUE: MRI was performed utilizing multiple appropriate imaging planes and pulse sequences. FINDINGS: SUPRATENTORIAL REGION: No evidence for acute ischemia or intracranial hemorrhage. Scattered ill-defi ceferino FLAIR hyperintensities are noted within the bilateral periventricular region, clark radiata and subcortical white matter. POSTERIOR FOSSA: Unremarkable. BRAINSTEM: Unremarkable. SELLAR/SUPRASELLAR REGION: Unremarkable. VENTRICLES, CISTERNS, SULCI: Age-appropriate. ORBITS: Unremarkable. PARANASAL SINUSES: Paranasal sinus mucosal thickening noted. MASTOID AIR CELLS: Unremarkable. VASCULATURE: Unremarkable. BONES/ SOFT TISSUES: Unremarkable. OTHER: None. IMPRESSION: 1. No acute intracranial process identified. 2. Mild chronic microvascular ischemic changes. 3. Mild paranasal sinus disease.
--- NOTE | 2024-09-16 16:42 | DVH ---
PROCEDURE: MRI MRA ANGIO HEAD BRAIN INDICATION: aloc Exam Date: 09/16/2024 03:42 PM COMPARISON: None TECHNIQUE: MRA head without and with intravenous contrast. 3D image postprocessing was performed on a dedicated workstation and images were used for interpretat ion and reporting. FINDINGS: MRA head: There is preserved enhancement within the bilateral distal internal carotid arteries. There is prese rved enhancement within the anterior and middle cerebral arteries. There is preserved enhancement wi thin the vertebral arteries, basilar artery, cerebellar arteries and posterior cerebral arteries. Th ere is no evidence of hemodynamically significant intracranial stenosis, proximal occlusion or aneury sm. No abnormal venous signal is seen. IMPRESSION: 1. No evidence of hemodynamically significant intracranial stenosis, proximal occlusion or aneurysm.
--- NOTE | 2024-09-16 16:46 | DVH ---
PROCEDURE: MRI MRA ANGIO OF NECK INDICATION: aloc 09/16/2024 03:53 PM COMPARISON: None TECHNIQUE: MRA head with intravenous contrast. MRA neck with intravenous contrast. 3D image postprocessing was performed on a dedicated workstation and images were used for interpretat ion and reporting. FINDINGS: MRA head: There is preserved enhancement within the bilateral distal internal carotid arteries. There is preserved enhancement within the anterior and middle cerebral arteries. There is preserved enhancement within the vertebral arteries, basilar artery, cerebellar arteries and posterior cerebral arteries. There is no evidence of hemodynamically significant intracranial stenosis, proximal occlusion or aneu rysm. No abnormal venous signal is seen. MRA neck: The visualized thoracic aortic arch and proximal great vessels are unremarkable. There is no evidence of hemodynamically significant stenosis involving the bilateral common and inter nal carotid arteries. The cervical vertebral arteries are patent. There is no evidence of dissection. IMPRESSION: 1. No evidence of hemodynamically significant intracranial stenosis, proximal occlusion or aneurysm. 2. No evidence of hemodynamically significant cervical stenosis or dissection.
[2024-09-16] MEDS: cefTRIAXone 1GM/50ML D5W 50 ML IV SCH (21:01)
[2024-09-16] MEDS: ENOXAPARIN SOD 40 MG/0.4 ML SYRINGE SC SCH (21:02)
[2024-09-16] MEDS: MELATONIN 5 MG TAB PO SCH (21:03)
[2024-09-17] VITALS (10 sets, daily range): BP systolic 101–108; BP diastolic 57–77; PULSE 59–75; RESP 14–20; TEMP 97.4–98.3; O2SAT 95–100
[2024-09-17] MEDS: HYDROcodone-ACET 5/325MG TAB PO PRN (09:25)
--- NOTE | 2024-09-17 13:36 | DVHSR ---
APPROVED REPORT EXAM: Two-dimensional and M-mode echocardiogram with Doppler and color Doppler. Blood Pressure: 101/63 mmHg INDICATION CAD RISK FACTORS Height: 5'4", Weight: 157 DIMENSIONS LVDd4.3 (3.8-5.7cm)LA (2D)4.3 (1.9-4.0cm)Aortic Root3.1 (2.0-3.7cm) LVDs2.9 (2.5-4.0cm)LA (MM) (1.9-4.0cm)Aortic Cusp Exc1.8 (1.5-2.0cm) EF (%) 60.0 (55-70%)Rt. Atrium3.9 (1.9-4.0cm)Asc. Aorta3.1 cm IVSd0.6 (0.7-1.1cm)RV (D)3.8 (1.8-2.4cm) PWd0.6 (0.7-1.1cm) Mitral Valve MitralMitral Stenosis E wave0.97m/sMV Mean GR.mmHg A wave0.70m/sMV Peak GR.mmHg E/A ratio1.42D MVAcm2 DECEL [id number] 1/2 [place] Aortic Valve Aortic ValveAortic Stenosis V10.94m/Vinny Mean GR.3mmHg V21.20m/Vinny Peak GR.6mmHg LVOT Diameter2.0 (1.8-2.4cm)Doppler AVA2.46cm2 Pulmonic Valve V20.70m/s Tricuspid Valve TR Velocity2.26m/s [id number] Conclusion Sinus rhythm. Left atrial enlargement. Mild aortic root enlargement. Valves are normal. EF of 60% with normal RV function. Doppler reveals mild MR and TR. No PE masses or vegetations
[2024-09-17] MEDS ORDERED: CIPR500T4 PO (14:15)
--- NOTE | 2024-09-17 14:15 | DVHDS2 ---
Discharge Summary Date of Admission Sep 15, 2024 at 23:26 Date of Discharge: Sep 17, 2024 Labs/Diagnostic Data: Laboratory Results Test 09/16/24 06:03 09/15/24 23:50 09/15/24 20:39 09/15/24 20:32 White Blood Count 5.9 10^3/uL (4.4-10.8) Red Blood Count 4.49 10^6/uL (4.0-5.20) Hemoglobin 14.3 g/dL (12.2-16.2) Hematocrit 41.8 % (36.0-46.0) Mean Corpuscular Volume 93.1 fL (80.0-100.0) Mean Corpuscular Hemoglobin 31.9 pg (28.0-32.0) Mean Corpuscular Hemoglobin Concent 34.3 g/dL (32.0-36.0) Red Cell Distribution Width 13.1 % (11.8-14.3) Platelet Count 246 10^3/uL (140-450) Mean Platelet Volume 8.2 fL (6.9-10.8) Neutrophils (%) (Auto) 44.9 % (37.0-80.0) Lymphocytes (%) (Auto) 40.8 % (10.0-50.0) Monocytes (%) (Auto) 11.0 % (0.0-12.0) Eosinophils (%) (Auto) 2.4 % (0.0-7.0) Basophils (%) (Auto) 0.9 % (0.0-2.0) Neutrophils # (Auto) 2.7 10 ^3/uL (1.6-8.6) Lymphocytes # (Auto) 2.4 10 ^3/uL (0.4-5.4) Monocytes # (Auto) 0.7 10 ^3/uL (0-1.3) Eosinophils # (Auto) 0.1 10 ^3/uL (0-0.8) Basophils # (Auto) 0.1 10 ^3/uL (0-0.2) Nucleated Red Blood Cells 0.1 % Prothrombin Time 10.9 sec (9.3-11.8) Prothrombin Time INR 1.03 (0.9-1.15) Activated Partial Thromboplast Time 25.2 SEC (24.5-34.5) Sodium Level 143 mmol/L (136-145) Potassium Level 4.2 mmol/L (3.5-5.1) Chloride Level 109 mmol/L (98-107) Carbon Dioxide Level 25 mmol/L (20-31) Anion Gap 9 (5-15) Blood Urea Nitrogen 8 mg/dL (9-23) Creatinine 0.78 mg/dL (0.550-1.02) Glomerular Filtration Rate Calc 83 mL/min (>90) BUN/Creatinine Ratio 10.3 (10.0-20.0) Serum Glucose 101 mg/dL (74-106) Calcium Level 10.1 mg/dL (8.7-10.4) Total Bilirubin 1.6 mg/dL (0.2-1.0) Aspartate Amino Transferase (AST) 27 U/L (13-40) Alanine Aminotransferase (ALT) 21 U/L (7-40) Alkaline Phosphatase 74 U/L (46-116) Total Protein 6.8 g/dL (5.7-8.2) Albumin 4.5 g/dL (3.2-4.8) Triglycerides Level 43 mg/dL (< 150) Cholesterol Level 182 mg/dL (< 200) LDL Cholesterol 89 mg/dL (< 100) HDL Cholesterol 82 mg/dL (40-59) Plasma/Serum Blood Alcohol < 3.0 mg/dL (<10) POC Glucose 86 mg/dl (70-106) Troponin I High Sensitivity 3 ng/L (</=34) Test 09/15/24 17:15 09/15/24 16:55 Urine Color Light-yellow (Yellow) Urine Clarity Clear (Clear) Urine pH 6.0 (5.0-9.0) Urine Specific [place] 1.008 (1.001-1.035) Urine Protein Negative (Negative) Urine Ketones Negative (Negative) Urine Blood Negative /uL (Negative) Urine Nitrite 2+ (Negative) Urine Bilirubin Negative (Negative) Urine Urobilinogen Normal mg/dL (Negative) Urine Leukocyte Esterase 2+ /uL (Negative) Urine RBC 1 /hpf (0 - 4) Urine Microscopic WBC 5 /HPF (0-5) Urine Squamous Epithelial Cells Few /hpf (<5) Urine Bacteria Few /hpf (None Seen) Urine Mucus Few (None Seen) Urine Glucose Normal mg/dL (Normal) Urine Opiates Screen Neg (NEGATIVE) Urine Fentanyl Screen Neg (NEGATIVE) Urine Barbiturates Screen Neg (NEGATIVE) Urine Phencyclidine Screen Neg (NEGATIVE) Urine Amphetamines Screen Neg (NEGATIVE) Urine Benzodiazepines Screen Neg (NEGATIVE) Urine Cocaine Screen Neg (NEGATIVE) Urine Cannabinoids Screen Neg (NEGATIVE) Hemoglobin A1c 5.4 % A1C (<5.7) Magnesium Level 2.1 mg/dL (1.6-2.6) B-Type Natriuretic Peptide 27.05 pg/mL (0-100) Other Laboratory Tests 09/16/24 06:03 Brief Hx & Hospital Course: This is a 69-year-old female with past medical history asthma brought to the hospital due to confusion status post mechanical fall. Per patient and patient's son, she had a mechanical fall 3 days back (the patient does not remember complete today event) but did not loss consciousness with no post fall nausea and vomiting, on morning the patient noticed bleeding on the floor and a scratch on forehead. Patient gradually developed dizziness, imbalance and got confused which prompted this visit. She Also reports dysuria, frequency and urgency. Patient denies fever, nausea, vomiting, chest pain, shortness of breath, or any bowel and bladder habit changes. She was admitted underwent tele Neurology consultation. Patient had a MRA of the brain as well as MR angiogram of the head and neck. Essentially these studies did not reveal any acute significant pathology. Patient's symptoms felt possibly secondary to underlying urinary tract infection and dehydration. Therefore received IV fluids and IV antibiotics. With these modalities while in the hospital her mentation is normal back to baseline status. Patient's blood sugars rate is normal without any orthostatic changes. Her symptoms resolved. Given patient is clinically feeling better back to baseline with a Neurology workup being negative it is felt she could be safely discharged home with the continued treatment with oral antibiotics for urinary tract infection. I have talked with the patient regarding this, about her hospital diagnosis, treatment she received, discharge medications, discharge instructions and follow-up plan of care. She has verbalized understanding of these and agree with the care plan as outlined Consults/Reason for consult ORDER NUMBER(s): [id number], ACCESSION NUMBER(s): [id number] EXAM: MRI BRAIN HEAD WO CONTRAST HISTORY: aloc COMPARISON: CT scan dated 09/15/2024 TECHNIQUE: MRI was performed utilizing multiple appropriate imaging planes and pulse sequences. FINDINGS: SUPRATENTORIAL REGION: No evidence for acute ischemia or intracranial hemorrhage. Scattered ill-defined FLAIR hyperintensities are noted within the bilateral periventricular region, clark radiata and subcortical white matter. POSTERIOR FOSSA: Unremarkable. BRAINSTEM: Unremarkable. SELLAR/SUPRASELLAR REGION: Unremarkable. VENTRICLES, CISTERNS, SULCI: Age-appropriate. ORBITS: Unremarkable. PARANASAL SINUSES: Paranasal sinus mucosal thickening noted. MASTOID AIR CELLS: Unremarkable. VASCULATURE: Unremarkable. BONES/ SOFT TISSUES: Unremarkable. OTHER: None. IMPRESSION: 1. No acute intracranial process identified. 2. Mild chronic microvascular ischemic changes. 3. Mild paranasal sinus disease. ATED BY: SANDRA ANAYA MD DICTATED DATE/TIME: 09/16/24 1601 Operations or Procedures ORDER NUMBER(s): [id number], ACCESSION NUMBER(s): [id number] APPROVED REPORT EXAM: Two-dimensional and M-mode echocardiogram with Doppler and color Doppler. Blood Pressure: 101/63 mmHg INDICATION CAD RISK FACTORS Height: 5'4", Weight: 157 DIMENSIONS LVDd 4.3 (3.8-5.7cm) LA (2D) 4.3 (1.9-4.0cm) Aortic Root 3.1 (2.0- 3.7cm) LVDs 2.9 (2.5-4.0cm) LA (MM) (1.9-4.0cm) Aortic Cusp Exc 1.8 (1.5- 2.0cm) EF (%) 60.0 (55-70%) Rt. Atrium 3.9 (1.9-4.0cm) Asc. Aorta 3.1 cm IVSd 0.6 (0.7-1.1cm) RV (D) 3.8 (1.8-2.4cm) PWd 0.6 (0.7-1.1cm) Mitral Valve Mitral Mitral Stenosis E wave 0.97m/s MV Mean GR. mmHg A wave 0.70m/s MV Peak GR. mmHg E/A ratio 1.4 2D MVA cm2 DECEL Time 187ms PRESS 1/2 Time ms Aortic Valve Aortic Valve Aortic Stenosis V1 0.94m/s AO Mean GR. 3mmHg V2 1.20m/s AO Peak GR. 6mmHg LVOT Diameter 2.0 (1.8-2.4cm) Doppler JUAN ANTONIO 2.46cm2 Pulmonic Valve V2 0.70m/s Tricuspid Valve TR Velocity 2.26m/s RVSP 24mmHg Conclusion Sinus rhythm. Left atrial enlargement. Mild aortic root enlargement. Valves are normal. EF of 60% with normal RV function. Doppler reveals mild MR and TR. No PE masses or vegetations SIGNED BY: MARLI PRESSLEY Sr., MD SIGNED DATE/TIME: 09/17/24 1336 Condition at Discharge: Stable Final Diagnosis/Problems List Uti, dizziness Discharge Disposition: Home Discharge Instruct/Medications Diet: Consistent carbohydrate, Cardiac 2g Na,low cholest Activity: No Restrictions, As Tolerated Follow Up/Referral: PCP next week Medications: home medications New Medications: Ciprofloxacin Hcl (Ciprofloxacin Hcl) 500 Mg Tab 1 TAB PO BID, #10 TAB Continued Medications: Patients Own Medication (Patients Own Medication) . 160 MCG BID for asthma PTS OWN MED-OBTAIN FROM PT AND SEND TO RX DRUG: FREQ: RX# EXP: DATE DISP: TECH: RPH: Zolpidem Tartrate (Zolpidem Tartrate) 5 Mg Tab 1 TAB PO QPM, #30 TAB 2 Refills Discharge Statement: "Patient was advised to return to the ER or call 911 if any headaches, dizziness, shortness of breath, chest pain, abdominal pain, bleeding, fevers, or worsening of medical condition. Patient was counseled about treatment plan, medications, possible side effects, patientverbalized understanding. All questions were answered to the best of my ability. This discharge took greater then 30 minutes in planning, reviewing documentation, counseling the patient, and discussing with other team members." ASSESSMENT ASSESSMENT Assessment Uti, dizziness HIGINIO OVERTON MD Sep 17, 2024 14:15
[2024-09-19 10:45] LABS: Hepatitis B Surface Antigen Negative (Negative); Hepatitis C Antibody Negative (Negative)
== END 2024-09-17 16:25 | disposition home health service (06) | DRG 690 ==
LOC: ER 16:07 → OVERFLOW 23:26 → TELE-WESTW 09-16 01:21
PROVIDERS: ADMIT Hospitalist; ATTEND Hospitalist
DX: N39.0 Urinary tract infection, site not specified (principal); S09.8XXA Other specified injuries of head, initial encounter; J45.909 Unspecified asthma, uncomplicated; W18.39XA Other fall on same level, initial encounter; Y93.89 Activity, other specified; Y92.89 Other specified places as the place of occurrence of the external cause; Y99.8 Other external cause status
CPT/HCPCS: 36415; 70450; 70545; 70547; 70551; 71045; 80053; 80061; 80307; 80320; 81001; 82962; 83036; 83735; 83880; 84484; 85025; 85610; 85730; 86803; 87086; 87088; 87186; 87340; 93005; 93306; 94640; 96365; 97110; 97163; 99291; G0378; J2470